=== PATIENT | female | born 1960 | race Caucasian/White ===

== ENCOUNTER → 2017-05-10 | Outpatient (CLI) | payer BC ==
[~2017-05-10] MED LIST: ALEVE220 MG PO; AMBIEN CR6.25 MG PO; NORCO 5-325 MG1 TAB PO; SINGULAIR10 MG PO; TOPAMAX100 M1 PO; TORADOL10 MG PO; VICODIN 5-3001 EACH PO
== END | disposition disaster alternative care site (69) ==
LOC: GRAD 15:42
DX: G43.909 Migraine, unspecified, not intractable, without status migrainosus (principal)
CPT/HCPCS: A9577